=== PATIENT | female | born 1935 | race Two or more races ===

== ENCOUNTER 2023-05-31 14:37 | Inpatient (IN) | payer MEDICARE ==
[~2023-05-31] VITALS: Ht 144.8 cm; Wt 37.2 kg
[2023-05-31 15:06] LABS: BASOPHILS % (AUTO) 0.3 % (0.0-2.0); EOSINOPHILS % (AUTO) 0.2 % (0.0-6.0); HEMATOCRIT 40 % (33-45); HEMOGLOBIN 13.4 g/dL (11.5-14.8); LYMPHOCYTES # (AUTO) 0.9 K/uL (0.8-4.8); LYMPHOCYTES % (AUTO) 14.4 % (20.0-44.0); MEAN CORPUSCULAR HEMOGLOBIN 29 PG (26.0-33.0); MEAN CORPUSCULAR HGB CONC 33 g/dl (31.0-36.0); MEAN CORPUSCULAR VOLUME 86 fL (82-100); MONOCYTES # (AUTO) 0.5 K/uL (0.1-1.30); MONOCYTES % (AUTO) 8.3 % (2.0-12.0); NEUTROPHILS # (AUTO) 4.7 K/uL (1.8-8.9); NEUTROPHILS % (AUTO) 76.8 % (43.0-81.0); PLATELET COUNT (AUTO) 329 K/uL (150-450); RED BLOOD CELL COUNT(AUTO) 4.69 MIL/uL (4.0-5.2); WHITE BLOOD COUNT (AUTO) 6.1 K/uL (4.3-11.0)
[2023-05-31] MEDS ORDERED: GUAI600T53 PO (15:06)
[2023-05-31] MEDS ORDERED: HYDR-500 PO (15:06)
[2023-05-31] MEDS ORDERED: IPRA3AMP22 IH (15:06)
[2023-05-31] MEDS ORDERED: NIFE30TA91 PO (15:06)
[2023-05-31] MEDS ORDERED: BUDE10.2 IH (15:06)
[2023-05-31] MEDS ORDERED: LEVO750T46 PO (15:06)
[2023-05-31] MEDS ORDERED: LISI40TA13 PO (15:06)
[2023-05-31] MEDS ORDERED: MONT10TA22 PO (15:06)
[2023-05-31 15:18] LABS: CALCIUM, SERUM 8.8 mg/dL (8.5-10.1); CARBON DIOXIDE 27 mmol/L (21-32); CHLORIDE 99 mmol/L (98-107); CREATININE 1.4 mg/dL (0.6-1.3); GLUCOSE 110 mg/dL (74-106); POTASSIUM 3.3 mmol/L (3.5-5.1); SODIUM SERUM 136 mmol/L (136-145); UREA NITROGEN, BLOOD 31 mg/dL (7-18)
[2023-05-31 15:29] LABS: INR 1.03 (0.91-1.10); PARTIAL THROMBOPLASTIN TIME 37.1 SEC (24.3-34.3); PROTHROMBIN TIME 10.9 SECS (9.2-11.1)
[2023-05-31 15:32] LABS: ALANINE AMINOTRANSFERASE 20 U/L (12-78); ALBUMIN 2.4 g/dL (3.4-5.0); ALKALINE PHOSPHATASE 106 U/L (46-116); ASPARTATE AMINOTRANSFERASE 27 U/L (15-37); BILIRUBIN,DIRECT 0.2 mg/dL (0.0-0.2); BILIRUBIN,TOTAL 0.6 mg/dL (0.2-1.0); NT-PRO BNP 507 pg/mL (0-125); TOTAL PROTEIN, SERUM 6.2 g/dL (6.4-8.2)
[2023-05-31] MEDS ORDERED: CT SWABBABLE VALVE TRANS SET 1 EA INFUS.SET MC ONE (15:33)
[2023-05-31] MEDS ORDERED: IOHEXOL-350 100 ML VIAL IV ONE (15:33)
[2023-05-31] MEDS ORDERED: IV NS 0.9% 250 ML IV ONE (15:33)
[2023-05-31] MEDS ORDERED: Z GUARD REMEDY 4 OZ OINT TP PRN (16:30)
[2023-05-31] MEDS ORDERED: MAG HYDROX/AL HYDROX/SIMETH 30 ML UDC PO PRN (16:30)
[2023-05-31] MEDS ORDERED: ONDANSETRON HCL/PF 4 MG/2 ML VIAL IVP PRN (16:30)
[2023-05-31] MEDS ORDERED: VANCOMYCIN 1 GM in IV D5W 250 ML IV ONE (16:30)
[2023-05-31] MEDS ORDERED: MAGNESIUM HYDROXIDE 30 ML UDC PO PRN (16:30)
[2023-05-31] MEDS ORDERED: PIPERACILLIN /TAZOBACTAM 3.375 G in IV D5W 50 ML IV ONE (16:30)
[2023-05-31] MEDS ORDERED: AZITHROMYCIN 500 MG in IV D5W 250 ML IV ONE (16:30)
[2023-05-31] MEDS ORDERED: IPRATROPIUM NEB FS 0.5 MG/2.5 ML AMPUL.NEB NEB PRN (16:30)
[2023-05-31] MEDS ORDERED: ALBUTEROL FS 2.5 MG/0.5 ML VIAL.NEB NEB PRN (16:30)
[2023-05-31] MEDS ORDERED: VANCOMYCIN 1 GM in IV D5W 250ml IV ONE (18:00)
[2023-05-31 18:16] LABS: ANISOCYTOSIS 1+; BAND % (MANUAL) 1 % (0.0-5.0); LYMPHOCYTES % (MANUAL) 16 % (16-48); MONOCYTES % (MANUAL) 4 % (0-11.0); NEUTROPHILS % (MANUAL) 79 (42-76); PLATELET ESTIMATE ADEQUATE
[2023-05-31 18:17] LABS: OVALOCYTES 1+
[2023-05-31] MEDS ORDERED: ZOSYN IVPB 3.375 G in IV D5W 50ml IV ONE (20:00)
[2023-05-31] MEDS: IV NS 0.9% 1,000 ML IV PRN (21:29)
[2023-05-31] MEDS: MONTELUKAST SODIUM (10MG) 10 MG TABLET PO SCH (21:39)
[2023-05-31] MEDS: ENOXAPARIN SODIUM 30 MG/0.3 ML DISP.SYRIN SQ SCH (21:40)
[2023-05-31] MEDS: CEFEPIME 1 GM in IV D5W 50 ML IV SCH (22:50)
[2023-05-31 23:15] VITALS: BP 146/84; TEMP 98.4; O2SAT 96
[2023-06-01 00:06] VITALS: BP 146/84; TEMP 98.4; O2SAT 92
[2023-06-01 05:01] VITALS: BP 137/78; TEMP 98.3; O2SAT 93
[2023-06-01 06:58] LABS: BASOPHILS % (AUTO) 0.1 % (0.0-2.0); HEMATOCRIT 40 % (33-45); HEMOGLOBIN 12.9 g/dL (11.5-14.8); LYMPHOCYTES # (AUTO) 0.6 K/uL (0.8-4.8); LYMPHOCYTES % (AUTO) 9.7 % (20.0-44.0); MEAN CORPUSCULAR HEMOGLOBIN 29 PG (26.0-33.0); MEAN CORPUSCULAR HGB CONC 33 g/dl (31.0-36.0); MEAN CORPUSCULAR VOLUME 88 fL (82-100); MONOCYTES # (AUTO) 0.4 K/uL (0.1-1.30); NEUTROPHILS # (AUTO) 5.6 K/uL (1.8-8.9); NEUTROPHILS % (AUTO) 84.2 % (43.0-81.0); PLATELET COUNT (AUTO) 286 K/uL (150-450); RED BLOOD CELL COUNT(AUTO) 4.53 MIL/uL (4.0-5.2); WHITE BLOOD COUNT (AUTO) 6.6 K/uL (4.3-11.0)
[2023-06-01 07:06] LABS: CALCIUM, SERUM 8.5 mg/dL (8.5-10.1); CREATININE 1.1 mg/dL (0.6-1.3); MAGNESIUM 2.1 mg/dL (1.8-2.4); POTASSIUM 3.5 mmol/L (3.5-5.1)
[2023-06-01 07:30] VITALS: BP 134/66; TEMP 99.5; O2SAT 95
[2023-06-01] MEDS: PANTOPRAZOLE 40 MG TABLET.DR PO SCH (08:06)
[2023-06-01] MEDS: CEFEPIME 1 GM in IV D5W 50 ML IV SCH ×2 (08:06→20:15)
[2023-06-01 12:09] LABS: ANISOCYTOSIS 1+; BASOPHILS % (MANUAL) 0 % (0.0-2.0); EOSINOPHILS % (MANUAL) 3 % (0-4); LYMPHOCYTES % (MANUAL) 11 % (16-48); MONOCYTES % (MANUAL) 7 % (0-11.0); NEUTROPHILS % (MANUAL) 79 (42-76); OVALOCYTES 1+; PLATELET ESTIMATE ADEQUATE
[2023-06-01] MEDS ORDERED: NEUTRA PHOS 1 POWD.PACKET NG ONE (13:00)
[2023-06-01] MEDS: THERAHONEY GEL 1.5 OZ TUBE TP SCH ×2 (13:52)
[2023-06-01 14:33] LABS: HIV-1 p24 ANTIGEN NON REACTIVE (NONREACTIVE); HIV-1/2 ANTIBODY NON REACTIVE (NONREACTIVE)
[2023-06-01] MEDS: PROSOURCE / PROSTAT (PYXIS) 30 ML UDC PO SCH ×2 (14:46→17:45)
[2023-06-01 16:26] VITALS: BP 136/76; TEMP 98.2; O2SAT 98
[2023-06-01] MEDS: ARGININE/GLUTAMINE/CALCIUM BMB 1 EACH POWD.PACK PO SCH (17:45)
[2023-06-01] MEDS: ENSURE ENLIVE 237 ML LIQUID (VANILLA) PO SCH (17:45)
[2023-06-01] MEDS: IV NS 0.9% 1,000 ML IV PRN (18:50)
[2023-06-01] MEDS: VANCOMYCIN HCL 0.75 GM in IV D5W 250 ML IV SCH (18:52)
[2023-06-01 20:00] VITALS: BP 118/74; TEMP 99; O2SAT 92; O2SAT 94
[2023-06-01] MEDS: MONTELUKAST SODIUM (10MG) 10 MG TABLET PO SCH (21:55)
[2023-06-01] MEDS: ENOXAPARIN SODIUM 30 MG/0.3 ML DISP.SYRIN SQ SCH (21:56)
[2023-06-02] VITALS: BP 129/67; TEMP 98.1; O2SAT 95
[2023-06-02 04:00] VITALS: BP 130/65; TEMP 97.7; O2SAT 95
[2023-06-02 07:00] LABS: ABG OXYGEN SATURATION 87.1 % (92.0-98.5); ABG PCO2 30.6 mmHg (35.0-45.0); ABG PH 7.499 (7.350-7.450); ABG PO2 46.3 mmHg (75.0-100.0); ABG TOTAL HEMOGLOBIN 13.8 G/dL (12.0-16.0); COHb 0.3 % (0.5-1.5); MetHb 0.2 % (0.0-1.5); O2Hb 86.7 % (94.0-97.0); SITE, ABG Left Radial; VENT MODE, BG 15L NRB
[2023-06-02 07:01] LABS: BASOPHILS % (AUTO) 0.3 % (0.0-2.0); EOSINOPHILS % (AUTO) 0.1 % (0.0-6.0); HEMATOCRIT 36 % (33-45); HEMOGLOBIN 11.8 g/dL (11.5-14.8); LYMPHOCYTES # (AUTO) 0.8 K/uL (0.8-4.8); MEAN CORPUSCULAR HEMOGLOBIN 29 PG (26.0-33.0); MEAN CORPUSCULAR HGB CONC 33 g/dl (31.0-36.0); MEAN CORPUSCULAR VOLUME 87 fL (82-100); MONOCYTES # (AUTO) 0.5 K/uL (0.1-1.30); MONOCYTES % (AUTO) 7.4 % (2.0-12.0); NEUTROPHILS % (AUTO) 79.2 % (43.0-81.0); PLATELET COUNT (AUTO) 236 K/uL (150-450); RED BLOOD CELL COUNT(AUTO) 4.12 MIL/uL (4.0-5.2); WHITE BLOOD COUNT (AUTO) 6.2 K/uL (4.3-11.0)
[2023-06-02 07:19] LABS: ALBUMIN 1.8 g/dL (3.4-5.0); BILIRUBIN,TOTAL 0.5 mg/dL (0.2-1.0); CALCIUM, SERUM 8.2 mg/dL (8.5-10.1); CREATININE 1.1 mg/dL (0.6-1.3); MAGNESIUM 1.9 mg/dL (1.8-2.4); PHOSPHORUS 2.4 mg/dL (2.5-4.9); POTASSIUM 2.9 mmol/L (3.5-5.1)
[2023-06-02 07:36] LABS: TOTAL PROTEIN, SERUM 4.9 g/dL (6.4-8.2)
[2023-06-02] MEDS: PANTOPRAZOLE 40 MG TABLET.DR PO SCH (07:57)
[2023-06-02 08:00] VITALS: BP 127/69; TEMP 98.2; O2SAT 94
[2023-06-02] MEDS: ENSURE ENLIVE 237 ML LIQUID (VANILLA) PO SCH ×2 (08:04→17:40)
[2023-06-02] MEDS: PROSOURCE / PROSTAT (PYXIS) 30 ML UDC PO SCH ×3 (08:04→17:00)
[2023-06-02] MEDS: ARGININE/GLUTAMINE/CALCIUM BMB 1 EACH POWD.PACK PO SCH ×2 (08:04→17:00)
[2023-06-02] MEDS: CEFEPIME 1 GM in IV D5W 50 ML IV SCH ×2 (08:12→20:27)
[2023-06-02] MEDS: POTASSIUM CHLORIDE 20 MEQ POWDER PACKET PO SCH ×3 (09:49→11:33)
[2023-06-02] MEDS: THERAHONEY GEL 1.5 OZ TUBE TP SCH ×2 (11:06)
[2023-06-02] MEDS: IV NS 0.9% 1,000 ML IV PRN (13:10)
[2023-06-02 16:00] VITALS: BP 142/73; TEMP 97.8; O2SAT 98
[2023-06-02] MEDS ORDERED: NEUTRA PHOS 1 POWD.PACKET PO ONE (16:00)
[2023-06-02] MEDS: VANCOMYCIN HCL 0.75 GM in IV D5W 250 ML IV SCH ×2 (18:00→18:06)
[2023-06-02 20:00] VITALS: BP 135/71; TEMP 97.9; O2SAT 97
[2023-06-02] MEDS: MONTELUKAST SODIUM (10MG) 10 MG TABLET PO SCH (21:24)
[2023-06-02] MEDS: ENOXAPARIN SODIUM 30 MG/0.3 ML DISP.SYRIN SQ SCH (21:25)
[2023-06-03 06:59] LABS: CALCIUM, SERUM 8.2 mg/dL (8.5-10.1); POTASSIUM 3.3 mmol/L (3.5-5.1)
[2023-06-03 07:30] VITALS: BP 142/81; TEMP 98.2; O2SAT 90
[2023-06-03] MEDS: PANTOPRAZOLE 40 MG TABLET.DR PO SCH (08:11)
[2023-06-03] MEDS: ENSURE ENLIVE 237 ML LIQUID (VANILLA) PO SCH ×2 (08:11→17:08)
[2023-06-03] MEDS: CEFEPIME 1 GM in IV D5W 50 ML IV SCH ×2 (08:18→20:45)
[2023-06-03] MEDS: THERAHONEY GEL 1.5 OZ TUBE TP SCH ×2 (08:33)
[2023-06-03] MEDS: ARGININE/GLUTAMINE/CALCIUM BMB 1 EACH POWD.PACK PO SCH ×2 (09:07→17:00)
[2023-06-03] MEDS: PROSOURCE / PROSTAT (PYXIS) 30 ML UDC PO SCH ×3 (09:07→17:00)
[2023-06-03] MEDS ORDERED: POTASSIUM CHLORIDE 20 MEQ POWDER PACKET PO ONE (11:00)
[2023-06-03 16:00] VITALS: BP 126/85; TEMP 98.1; O2SAT 98
[2023-06-03 20:00] VITALS: BP 135/67; TEMP 97.9; O2SAT 95
[2023-06-03] MEDS: ENOXAPARIN SODIUM 30 MG/0.3 ML DISP.SYRIN SQ SCH (21:15)
[2023-06-03] MEDS: MONTELUKAST SODIUM (10MG) 10 MG TABLET PO SCH (21:16)
[2023-06-04] VITALS (7 sets, daily range): BP systolic 102–166; BP diastolic 69–87; TEMP 97.3–99.7; O2SAT 90–97
[2023-06-04] MEDS: IV NS 0.9% 1,000 ML IV PRN (01:09)
[2023-06-04 07:57] LABS: CALCIUM, SERUM 8.2 mg/dL (8.5-10.1); CREATININE 1.1 mg/dL (0.6-1.3); POTASSIUM 3.2 mmol/L (3.5-5.1)
[2023-06-04] MEDS: CEFEPIME 1 GM in IV D5W 50 ML IV SCH ×2 (08:36→22:06)
[2023-06-04] MEDS: PANTOPRAZOLE 40 MG TABLET.DR PO SCH (08:36)
[2023-06-04] MEDS: PROSOURCE / PROSTAT (PYXIS) 30 ML UDC PO SCH ×3 (08:37→17:13)
[2023-06-04] MEDS: ENSURE ENLIVE 237 ML LIQUID (VANILLA) PO SCH ×2 (08:37→17:13)
[2023-06-04] MEDS: THERAHONEY GEL 1.5 OZ TUBE TP SCH ×2 (08:38)
[2023-06-04] MEDS: ARGININE/GLUTAMINE/CALCIUM BMB 1 EACH POWD.PACK PO SCH ×2 (08:57→17:13)
[2023-06-04] MEDS ORDERED: POTASSIUM CHLORIDE 20 MEQ POWDER PACKET PO ONE (10:00)
[2023-06-04] MEDS: LISINOPRIL (20MG) 20 MG TABLET PO SCH (15:30)
[2023-06-04] MEDS: MONTELUKAST SODIUM (10MG) 10 MG TABLET PO SCH (22:11)
[2023-06-04] MEDS: ENOXAPARIN SODIUM 30 MG/0.3 ML DISP.SYRIN SQ SCH (22:12)
[2023-06-05] VITALS: BP 110/73; TEMP 98; O2SAT 94
[2023-06-05 04:00] VITALS: BP 97/68; TEMP 98; O2SAT 93
[2023-06-05 07:00] VITALS: BP 93/64; TEMP 97.5; O2SAT 92
[2023-06-05] MEDS: PANTOPRAZOLE 40 MG TABLET.DR PO SCH (08:34)
[2023-06-05] MEDS: LISINOPRIL (20MG) 20 MG TABLET PO SCH (09:00)
[2023-06-05] MEDS: ARGININE/GLUTAMINE/CALCIUM BMB 1 EACH POWD.PACK PO SCH ×2 (09:01→17:00)
[2023-06-05] MEDS: PROSOURCE / PROSTAT (PYXIS) 30 ML UDC PO SCH ×3 (09:01→17:00)
[2023-06-05] MEDS: ENSURE ENLIVE 237 ML LIQUID (VANILLA) PO SCH ×3 (09:02→19:04)
[2023-06-05] MEDS: THERAHONEY GEL 1.5 OZ TUBE TP SCH ×2 (09:11)
[2023-06-05] MEDS: CEFEPIME 1 GM in IV D5W 50 ML IV SCH (11:29)
[2023-06-05 11:32] LABS: BASOPHILS # (AUTO) 0.1 K/uL (0.0-0.2); BASOPHILS % (AUTO) 0.6 % (0.0-2.0); HEMATOCRIT 48 % (33-45); HEMOGLOBIN 15.7 g/dL (11.5-14.8); LYMPHOCYTES # (AUTO) 0.5 K/uL (0.8-4.8); MEAN CORPUSCULAR HEMOGLOBIN 29 PG (26.0-33.0); MEAN CORPUSCULAR HGB CONC 33 g/dl (31.0-36.0); MEAN CORPUSCULAR VOLUME 87 fL (82-100); MONOCYTES # (AUTO) 0.5 K/uL (0.1-1.30); MONOCYTES % (AUTO) 5.2 % (2.0-12.0); NEUTROPHILS # (AUTO) 7.6 K/uL (1.8-8.9); NEUTROPHILS % (AUTO) 88.2 % (43.0-81.0); PLATELET COUNT (AUTO) 105 K/uL (150-450); RED CELL DISTRIBUTION WIDTH 15.6 % (11.5-15.0); WHITE BLOOD COUNT (AUTO) 8.7 K/uL (4.3-11.0)
[2023-06-05 11:41] LABS: ALBUMIN 1.6 g/dL (3.4-5.0); BILIRUBIN,TOTAL 0.5 mg/dL (0.2-1.0); CALCIUM, SERUM 8.5 mg/dL (8.5-10.1); CREATININE 1.3 mg/dL (0.6-1.3); MAGNESIUM 2.1 mg/dL (1.8-2.4); PHOSPHORUS 3.5 mg/dL (2.5-4.9); POTASSIUM 3.7 mmol/L (3.5-5.1); TOTAL PROTEIN, SERUM 5.2 g/dL (6.4-8.2)
[2023-06-05 12:00] VITALS: BP 102/82; TEMP 97.5; O2SAT 95
[2023-06-05 16:00] VITALS: BP 101/72; TEMP 97.4; O2SAT 97
[2023-06-05 19:00] VITALS: BP 103/66; TEMP 97.8; O2SAT 93
[2023-06-05] MEDS: MONTELUKAST SODIUM (10MG) 10 MG TABLET PO SCH (22:03)
[2023-06-05] MEDS: ENOXAPARIN SODIUM 30 MG/0.3 ML DISP.SYRIN SQ SCH (22:03)
[2023-06-06] MEDS: CEFEPIME 1 GM in IV D5W 50 ML IV SCH ×2 (02:43→08:23)
[2023-06-06 07:00] VITALS: BP 142/81; TEMP 97.8; O2SAT 96
[2023-06-06 07:18] LABS: CALCIUM, SERUM 8.2 mg/dL (8.5-10.1); CARBON DIOXIDE 23 mmol/L (21-32); CHLORIDE 105 mmol/L (98-107); CREATININE 1.4 mg/dL (0.6-1.3); GLUCOSE 89 mg/dL (74-106); SODIUM SERUM 139 mmol/L (136-145); UREA NITROGEN, BLOOD 43 mg/dL (7-18)
[2023-06-06] MEDS ORDERED: POTASSIUM CHLORIDE 20 MEQ TAB.PRT.SR PO ONE (07:30)
[2023-06-06] MEDS ORDERED: CEFEPIME 1 GM in IV D5W 50 ML IV SCH (08:00)
[2023-06-06] MEDS: PROSOURCE / PROSTAT (PYXIS) 30 ML UDC PO SCH ×3 (08:23→17:40)
[2023-06-06] MEDS: PANTOPRAZOLE 40 MG TABLET.DR PO SCH (08:23)
[2023-06-06] MEDS: ARGININE/GLUTAMINE/CALCIUM BMB 1 EACH POWD.PACK PO SCH ×2 (08:23→17:40)
[2023-06-06] MEDS: LISINOPRIL (20MG) 20 MG TABLET PO SCH (08:24)
[2023-06-06] MEDS: ENSURE ENLIVE 237 ML LIQUID (VANILLA) PO SCH ×3 (08:24→17:40)
[2023-06-06] MEDS: THERAHONEY GEL 1.5 OZ TUBE TP SCH ×2 (08:25→08:26)
[2023-06-06] MEDS: HYDROCODONE/APAP 5/325MG TABLET PO PRN (13:02)
[2023-06-06 16:00] VITALS: BP 117/70; O2SAT 96
[2023-06-06 20:00] VITALS: BP 108/72; TEMP 97.2; O2SAT 95
[2023-06-06] MEDS: MONTELUKAST SODIUM (10MG) 10 MG TABLET PO SCH (21:37)
[2023-06-06] MEDS: ENOXAPARIN SODIUM 30 MG/0.3 ML DISP.SYRIN SQ SCH (21:38)
[2023-06-07 06:57] LABS: BASOPHILS % (AUTO) 0.2 % (0.0-2.0); HEMATOCRIT 40 % (33-45); HEMOGLOBIN 12.8 g/dL (11.5-14.8); LYMPHOCYTES # (AUTO) 0.4 K/uL (0.8-4.8); LYMPHOCYTES % (AUTO) 6.5 % (20.0-44.0); MEAN CORPUSCULAR HEMOGLOBIN 28 PG (26.0-33.0); MEAN CORPUSCULAR HGB CONC 32 g/dl (31.0-36.0); MEAN CORPUSCULAR VOLUME 87 fL (82-100); MONOCYTES # (AUTO) 0.5 K/uL (0.1-1.30); NEUTROPHILS # (AUTO) 5.9 K/uL (1.8-8.9); NEUTROPHILS % (AUTO) 86.3 % (43.0-81.0); PLATELET COUNT (AUTO) 268 K/uL (150-450); RED BLOOD CELL COUNT(AUTO) 4.59 MIL/uL (4.0-5.2); RED CELL DISTRIBUTION WIDTH 15.6 % (11.5-15.0); WHITE BLOOD COUNT (AUTO) 6.9 K/uL (4.3-11.0)
[2023-06-07 07:21] LABS: ALBUMIN 1.8 g/dL (3.4-5.0); BILIRUBIN,TOTAL 0.5 mg/dL (0.2-1.0); CALCIUM, SERUM 8.6 mg/dL (8.5-10.1); CREATININE 1.2 mg/dL (0.6-1.3); MAGNESIUM 2.3 mg/dL (1.8-2.4); PHOSPHORUS 2.9 mg/dL (2.5-4.9); POTASSIUM 3.4 mmol/L (3.5-5.1); TOTAL PROTEIN, SERUM 5.1 g/dL (6.4-8.2)
[2023-06-07] MEDS: PANTOPRAZOLE 40 MG TABLET.DR PO SCH ×2 (07:30→09:16)
[2023-06-07 08:00] VITALS: BP 169/73; TEMP 97.8; O2SAT 97
[2023-06-07] MEDS ORDERED: CEFEPIME 1 GM in IV D5W 50 ML IV SCH (08:00)
[2023-06-07] MEDS: ARGININE/GLUTAMINE/CALCIUM BMB 1 EACH POWD.PACK PO SCH ×3 (09:00→17:00)
[2023-06-07] MEDS: LISINOPRIL (20MG) 20 MG TABLET PO SCH ×2 (09:00→09:17)
[2023-06-07] MEDS: THERAHONEY GEL 1.5 OZ TUBE TP SCH ×2 (09:00)
[2023-06-07] MEDS: ENSURE ENLIVE 237 ML LIQUID (VANILLA) PO SCH ×4 (09:00→17:00)
[2023-06-07] MEDS: PROSOURCE / PROSTAT (PYXIS) 30 ML UDC PO SCH ×3 (09:17→17:00)
[2023-06-07] MEDS: HYDROCODONE/APAP 5/325MG TABLET PO PRN (10:50)
[2023-06-07] MEDS ORDERED: POTASSIUM CHLORIDE 20 MEQ POWDER PACKET PO ONE (11:00)
[2023-06-07 16:00] VITALS: BP 115/67; TEMP 97.9; O2SAT 97
[2023-06-07 20:00] VITALS: BP 136/77; TEMP 98.4; O2SAT 95
[2023-06-07] MEDS: ACETAMINOPHEN 325 MG TABLET PO PRN (20:30)
[2023-06-07] MEDS: MONTELUKAST SODIUM (10MG) 10 MG TABLET PO SCH (21:13)
[2023-06-07] MEDS: ENOXAPARIN SODIUM 30 MG/0.3 ML DISP.SYRIN SQ SCH (21:14)
[2023-06-07 23:31] LABS: APPEARANCE,URINE CLEAR (CLEAR); BILIRUBIN,URINE NEGATIVE (NEGATIVE); BLOOD, URINE TRACE-INTA Ery/uL (NEGATIVE); COLOR,URINE YELLOW (YELLOW); KETONES,URINE 1+ mg/dL (NEGATIVE); LEUKOCYTE ESTERASE ,URINE NEGATIVE (NEGATIVE); NITRITE, URINE NEGATIVE (NEGATIVE); PROTEIN,URINE 1+ mg/dl (NEGATIVE); UGLUCOSE NEGATIVE (NEGATIVE); UROBILINOGEN,URINE 0.2 EU/dL (0.2)
[2023-06-07 23:34] LABS: ADD URINE CULTURE NO; BACTERIA,URINE Rare /HPF (None Seen); EOSINOPHIL,URINE None Seen; SQUAMOUS EPITHELIAL CELL,UR Few /HPF (None Seen)
[2023-06-08] MEDS: PANTOPRAZOLE 40 MG TABLET.DR PO SCH (07:39)
[2023-06-08 08:00] VITALS: BP 123/74; TEMP 97.5; O2SAT 99
[2023-06-08] MEDS: ENSURE ENLIVE 237 ML LIQUID (VANILLA) PO SCH ×2 (09:00→13:00)
[2023-06-08] MEDS: PROSOURCE / PROSTAT (PYXIS) 30 ML UDC PO SCH ×2 (09:00→13:00)
[2023-06-08] MEDS: ARGININE/GLUTAMINE/CALCIUM BMB 1 EACH POWD.PACK PO SCH (09:00)
[2023-06-08 09:04] VITALS: BP 123/74
[2023-06-08] MEDS: LISINOPRIL (20MG) 20 MG TABLET PO SCH (09:04)
[2023-06-08] MEDS: THERAHONEY GEL 1.5 OZ TUBE TP SCH ×2 (09:07→09:08)
[2023-06-08] MEDS: ACETAMINOPHEN 325 MG TABLET PO PRN (09:09)
== END 2023-06-08 14:30 | DRG 853 ==
LOC: ER 14:54 → TELE 17:42 → MED 06-05 13:27
PROVIDERS: ATTEND Internal Medicine
PROC: 0JB70ZZ Excision of Back Subcutaneous Tissue and Fascia, Open Approach (ICD-10-PCS; principal; 2023-06-02)
PROC: 05H933Z Insertion of Infusion Device into Right Brachial Vein, Percutaneous Approach (ICD-10-PCS; 2023-06-03)
DX: A41.9 Sepsis, unspecified organism (principal); G92.8 Other toxic encephalopathy; J69.0 Pneumonitis due to inhalation of food and vomit; L89.103 Pressure ulcer of unspecified part of back, stage 3; J96.21 Acute and chronic respiratory failure with hypoxia; E44.0 Moderate protein-calorie malnutrition; N17.9 Acute kidney failure, unspecified; C83.10 Mantle cell lymphoma, unspecified site; J98.11 Atelectasis; E86.0 Dehydration; Z20.822 Contact with and (suspected) exposure to COVID-19; N18.30 Chronic kidney disease, stage 3 unspecified; I12.9 Hypertensive chronic kidney disease with stage 1 through stage 4 chronic kidney disease, or unspecified chronic kidney disease; U09.9 Post COVID-19 condition, unspecified; Z99.81 Dependence on supplemental oxygen; Z87.09 Personal history of other diseases of the respiratory system; Z79.51 Long term (current) use of inhaled steroids; Z79.899 Other long term (current) drug therapy; Z91.048 Other nonmedicinal substance allergy status; M89.8X9 Other specified disorders of bone, unspecified site; M40.209 Unspecified kyphosis, site unspecified; E88.09 Other disorders of plasma-protein metabolism, not elsewhere classified; Y95 Nosocomial condition; E87.6 Hypokalemia; E83.39 Other disorders of phosphorus metabolism; E03.9 Hypothyroidism, unspecified; E04.1 Nontoxic single thyroid nodule; R91.8 Other nonspecific abnormal finding of lung field
CPT/HCPCS: 36415; 36600; 71045-TC; 80048-TC; 80053-TC; 80076-TC; 81001; 82570-TC; 82803-TC; 83735-TC; 83880; 84100-TC; 84300-TC; 84484-TC; 85025-TC; 85730-TC; 86803; 86850-TC; 87081-TC; 87806; 92526; 92611-TC; 93307-TC; 97112-TC; 97116-TC; 97530-TC; A4223; C9803; G0378; J0692; J1650; J2543; J3370; J7030; J7050; J7060; Q9967